=== PATIENT | female | born 1970 | race Caucasian/White ===

== ENCOUNTER 2016-10-10 13:57 | Observation (INO) ==
--- NOTE | 2016-10-10 15:48 | Hospitalist History & Physical ---
Assessment and Plan (1) Acute exacerbation of CHF (congestive heart failure) Status: Acute Assessment and plan: lasix 80 mg IV every 12 hours, echo, CMP, mg, cbc tsh Current Visit: Yes (2) Hypertension Status: Acute Assessment and plan: coreg Current Visit: Yes (3) Morbid obesity Status: Acute Current Visit: Yes (4) DVT (deep venous thrombosis) Status: Acute Assessment and plan: xarelto Current Visit: Yes (5) Pulmonary emboli Status: Acute Assessment and plan: xarelto Current Visit: Yes (6) Lymphedema Status: Acute Assessment and plan: Dr Lindo for assistance Current Visit: Yes History of Present Illness Chief complaint: SOB History of present illness: Ms. 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 Patient has chronic lymphedema but has excessive fluid which is causing her extreme discomfort. Patient does have a history of congestive heart failure per her report. She had been told that she was not a diabetic. I will asked Dr. Lindo to see her due to her poor lymphatics and venous supply. Patient reports the clots do not run in their families nor is she currently on any kind of estrogen. Home Medications Medication Instructions Recorded Confirmed Type Montelukast Tab [Singulair Tab] 10 mg PO BEDTIME 02/02/16 09/17/16 History Clorazepate [Tranxene] 7.5 mg PO BEDTIME 07/01/16 09/17/16 History Fluticasone/Vilanterol [Breo 1 puff INH QPM 07/01/16 09/17/16 History Ellipta 200-25 Mcg INH] Ipratropium Inhaler [Atrovent 1 puff INH DAILY PRN 07/01/16 09/17/16 History Inhaler] Ipratropium Neb [Atrovent Neb] 250 mcg RESP TX QPM 07/01/16 09/17/16 History Benzonatate [Tessalon] 100 mg PO QPM 09/17/16 09/17/16 History Rivaroxaban [Xarelto] 20 mg PO QPM 09/17/16 09/17/16 History Tramadol HCl [Tramadol ER Tab] 50 mg PO QPM 09/17/16 09/17/16 History Furosemide [Furosemide] 40 mg PO DAILY 10/10/16 10/10/16 History Ibuprofen Tab [Motrin Tab] 400 mg PO BEDTIME 10/10/16 10/10/16 History Levofloxacin Tab [Levaquin Tab] 750 mg PO BEDTIME 10/10/16 10/10/16 History Allergies Allergy/AdvReac Type Severity Reaction Status Date / Time morphine Allergy Unknown/Unable Verified 07/01/16 11:33 to obtain albuterol AdvReac Palpitation Verified 09/17/16 17:56 s Morpholine Analogues AdvReac Hallucinati Verified 07/01/16 11:33 ng Medical,Surgical,& Family Hx - Medical History Cardio: History of: CHF, CAD, Hypertension, Cardiovascular Problems (IVC filter) Endocrine: No history of: Diabetes Mellitus (IDDM) Respiratory: History of: Pulmonary Embolism Genitourinary: History of: Recurring Urinary Tract Infections Musculoskeletal: History of: Musculoskeletal Problems (MS DVT) Hematology: History of: Clotting Problems (multiple blood clots has a filter) - Surgical History Cardiac Surgeries: Sugical HX of: Cardiac Catheterization Reproductive Surgeries: Surgical HX of;: Section, Hysterectomy, Tubal Ligation - Family History Family History: Reports;: Family Diabetes - Social History Smoking Status: Never smoker Frequency of Alcohol Use: None Type of Drug Use: None Marital Status: Single Lives With:: Alone Functional capacity: independent ambulation - Constitutional Constitutional: Present: fatigue, weight gain. Absent: fever(s), headache(s) - EENT Eyes: Absent: blurry vision, diplopia Ears: Absent: decreased hearing, ear discharge Nose, mouth and throat: Absent: headache(s), sore throat - Cardiovascular Cardiovascular: Present: dyspnea, dyspnea on exertion, edema, orthopnea, PND. Absent: chest pain at rest - Respiratory Respiratory: Present: dyspnea, dyspnea on exertion. Absent: snoring - Gastrointestinal Gastrointestinal: Absent: constipation, diarrhea, nausea, vomiting - Genitourinary Genitourinary: Present: dysuria. Absent: difficulty urinating - Musculoskeletal Musculoskeletal: Absent: arthralgias, back pain - Neurological Neurological: Absent: confusion, headache(s), syncope - Psychiatric Psychiatric: Absent: anxiety, depression - Endocrine Endocrine: Absent: cold intolerance, heat intolerance - Hematologic/Lymphatic Hematologic/Lymphatic: Absent: easy bleeding, easy bruising Exam - Constitutional Vitals: Period Temp Pulse Resp BP Sys/Mckay Pulse Ox Last 24 Hr 96.9 F 78 18 164/91 92 General appearance: no acute distress, over weight - Head Head exam: Present: normal inspection, normocephalic - Eye Eye exam: Present: EOMI. Absent: scleral icterus Pupils: Present: KEVEN, normal accommodation - ENT ENT exam: Present: normal exam, normal external ear exam - Neck Neck exam: Present: lymphadenopathy. Absent: thyromegaly - Respiratory Respiratory exam: Present: decreased breath sounds. Absent: rhonchi, wheezes - Cardiovascular Cardiovascular exam: Present: regular rate and rhythm. Absent: systolic murmur - GI/Abdominal GI/Abdominal exam: Present: normal bowel sounds, soft. Absent: tenderness - Extremities Exam Extremities exam: Present: normal capillary refill, calf tenderness, edema - Neurological Exam Neurological exam: Present: alert, oriented X3, CN II-XII intact, reflexes normal. Absent: motor sensory deficit - Psychiatric Psychiatric exam: Present: normal affect, normal mood - Skin Skin exam: Present: normal color, warm Results - Labs Lab Results: I have reviewed the past 24 hour labs
[2016-10-10] MEDS ORDERED: MAGNESIUM SULF RIDER 2 GM in PREMIX 1 EACH IV PRN (16:04)
[2016-10-10] MEDS ORDERED: ZALEPLON 5 MG CAPSULE PO PRN (16:04)
[2016-10-10] MEDS ORDERED: ONDANSETRON 4 MG/2 ML VIAL IV PRN (16:04)
[2016-10-10] MEDS ORDERED: ACETAMINOPHEN 325 MG TABLET PO PRN (16:04)
[2016-10-10] MEDS ORDERED: MAGNESIUM SULF RIDER 4 GM in PREMIX 1 EACH IV PRN (16:04)
[2016-10-10 16:32] LABS: Apearance,Urine Slightly Hazy (Clear); Bacteria,Urine Occasional /HPF (Few); Bilirubin,Urine Negative (Negative); Blood, Urine Negative (Negative); Glucose,Urine (UA) Negative (Negative); Ketones,Urine Negative (Negative); Mucus,Urine Occasional /LPF (Occasional); Nitrite,Urine Negative (Negative); Protein,Urine Negative; RBC,Urine 1 /HPF (0-4); Squamous Epithelial Cell,Urine Occasional /HPF (0-10); Urine Color Yellow (Yellow); Urine Specific Gravity 1.025 (1.001-1.035); Urine Urobilinogen < 2.0 EU/DL (0.2-1.0); WBC,Urine 6 /HPF (0-6)
--- NOTE | 2016-10-10 16:34 | EKG Report ---
Stationary ECG Study [facility] Test Date: 10/10/2016 4:34:05 PM Pat Name: MONET PETER Department: Room: 288 Gender: F Visual Merchandising Specialist: DEBBIE : 1970 Requested by: Shereen Alcazar Order Number: [id number] Reading MD: UMU GAVIN Intervals [place] Rate: 70 P: 60 AK: 172 QRS: 108 QRSD: 121 T: 7 QT: 421 QTc: 441 Interpretive Statements SINUS RHYTHM MARKED RIGHT AXIS DEVIATION PROBABLE INFERIOR MYOCARDIAL INFARCTION, PROBABLY OLD Electronically Signed On 10-14-16 18:27:10 CDT by UMU GAVIN [email or web address]
--- NOTE | 2016-10-10 16:41 | XRay Report ---
History: Shortness of breath Date: 10/10/2016 Study: Chest x-ray AP portable Comparison exam: September 17, 2016 There is stable cardiomegaly. The mediastinal contours are unchanged. The pulmonary vasculature is upper normal. There is atelectatic parenchymal disease in either lung base, similar to the previous study. There is no worsening infiltrate or increasing pleural effusion. Osseous structures are unchanged. Impression: Continued atelectatic change in the lung bases without gross change from the previous study. Stable cardiomegaly PROCEDURE INTERPRETED AT [facility] DEPARTMENT OF RADIOLOGY Final Report Signed by: Dr. Julianne Benson
--- NOTE | 2016-10-10 17:41 | Ultrasound Report ---
US venous doppler LE BI Indication: Lower extremity swelling and pain. Comparison: None. Technique: Using a transcutaneous probe, grayscale, spectral Doppler, and color Doppler images of the bilateral lower extremity venous structures were captured and stored. Grayscale images prior to and following compression were obtained. Interrogated venous structures include the bilateral common femoral vein, superficial femoral vein (proximal, mid, and distal), and popliteal vein. Findings: There is no evidence of thrombus within the interrogated venous structures. the interrogated venous segments demonstrate presence of both color flow and spectral flow. Impression: 1. No evidence of venous thrombosis. 10/10/2016 5:38 PM PROCEDURE INTERPRETED AT [facility] DEPARTMENT OF RADIOLOGY Final Report Signed by: Dr. Jameson Murillo
[2016-10-10 17:43] LABS: Basophils % 0.5 % (0.0-0.8); Eosinophils # 0.1 10*3/uL (0.0-0.87); Hematocrit 43.3 VOL% (35.7-47.0); Hemoglobin 13.5 GM/DL (12.0-16.0); Immature Granulocytes % 0.2 %; Immature Granulocytes Absolute 0.01 #; Lymphocytes % 33.1 % (21.3-54.2); Mean Corpuscular HGB Conc 31.2 GM/DL (32-36); Mean Corpuscular Hemoglobin 29 PG (27-34); Mean Corpuscular Volume 92.5 FL (87-102); Mean Platelet Volume 9.4 FL (9.6-12.0); Monocytes # 0.3 10*3/uL (0.11-0.8); Monocytes % 5.7 % (1.7-12.7); Neutrophils # 3.5 10*3/uL (1.4-7.4); Neutrophils % 58.5 % (38.7-73.9); Platelet Count 207 T/CUMM (130-400); Red Blood Count 4.68 MC/CUMM (3.8-5.5)
[2016-10-10] MEDS: SPIRONOLACTONE 25 MG TABLET PO SCH (17:44)
[2016-10-10] MEDS: PANTOPRAZOLE 40 MG TABLET PO SCH (17:44)
[2016-10-10] MEDS: ASPIRIN CHEW 81 MG TABLET PO SCH (17:44)
[2016-10-10 18:16] LABS: Albumin 3.3 G/DL (3.4-5.0); Bilirubin,Total 0.7 MG/DL (0.2-1.0); Calcium 9.1 MG/DL (8.5-10.1); Magnesium 2.1 MG/DL (1.8-2.4); Potassium 3.6 MMOL/L (3.5-5.1); Thyroid Stimulating Hormone 1.86 uIU/ml (0.358-3.74); Total Protein 6.4 G/DL (6.4-8.3)
[2016-10-10] MEDS ORDERED: TRAMADOL HCL 50 MG PO SCH (19:00)
[2016-10-10] MEDS ORDERED: BREO ELLIPTA INH SCH (21:00)
[2016-10-10] MEDS: MONTELUKAST 10 MG TABLET PO SCH (22:13)
[2016-10-10] MEDS: CARVEDILOL 3.125 MG TABLET PO SCH (22:13)
[2016-10-10] MEDS: CLORAZEPATE 3.75 MG TABLET PO SCH (22:13)
[2016-10-10] MEDS: RIVAROXABAN 20 MG TABLET PO SCH (22:13)
[2016-10-10] MEDS: FUROSEMIDE 40 MG/4 ML VIAL IV SCH (22:14)
[2016-10-11 05:24] LABS: Basophils % 0.3 % (0.0-0.8); Eosinophils # 0.1 10*3/uL (0.0-0.87); Hematocrit 43.5 VOL% (35.7-47.0); Hemoglobin 13.8 GM/DL (12.0-16.0); Immature Granulocytes % 0.3 %; Immature Granulocytes Absolute 0.02 #; Lymphocytes # 2.2 10*3/uL (1.4-4.0); Lymphocytes % 33.4 % (21.3-54.2); Mean Corpuscular HGB Conc 31.7 GM/DL (32-36); Mean Corpuscular Hemoglobin 29 PG (27-34); Mean Platelet Volume 9.8 FL (9.6-12.0); Monocytes # 0.4 10*3/uL (0.11-0.8); Monocytes % 6.6 % (1.7-12.7); Neutrophils # 3.7 10*3/uL (1.4-7.4); Neutrophils % 57.4 % (38.7-73.9); Platelet Count 227 T/CUMM (130-400); Red Blood Count 4.73 MC/CUMM (3.8-5.5); White Blood Count 6.5 T/CUMM (4-12)
[2016-10-11 05:46] LABS: Albumin 3.4 G/DL (3.4-5.0); Calcium 9.1 MG/DL (8.5-10.1); Osmolality,Calculated 280.3 MOS/KG (273-304); Potassium 4.3 MMOL/L (3.5-5.1); Risk Ratio 2.13; Total Protein 6.5 G/DL (6.4-8.3); VLDL CHOLESTEROL 19.2 MG/DL
[2016-10-11] MEDS: SPIRONOLACTONE 25 MG TABLET PO SCH (09:20)
[2016-10-11] MEDS: ASPIRIN CHEW 81 MG TABLET PO SCH (09:20)
[2016-10-11] MEDS: FUROSEMIDE 40 MG/4 ML VIAL IV SCH ×2 (09:20→16:30)
[2016-10-11] MEDS: CARVEDILOL 3.125 MG TABLET PO SCH ×2 (09:22→21:34)
[2016-10-11] MEDS: PANTOPRAZOLE 40 MG TABLET PO SCH (09:22)
[2016-10-11] MEDS: cefTRIAXone 1,000 MG in SODIUM CHLORIDE 0.9% 100 ML IV SCH (12:48)
--- NOTE | 2016-10-11 13:43 | Hospitalist Progress Note ---
Assessment and Plan (1) Acute exacerbation of CHF (congestive heart failure) Status: Acute Assessment and plan: decrease lasix to 20 mg IV every 12 hours, echo pending, normal bnp, doubt chf, cont coreg Current Visit: Yes (2) Hypertension Status: Acute Assessment and plan: cont coreg Current Visit: Yes (3) Morbid obesity Status: Acute Current Visit: Yes (4) DVT (deep venous thrombosis) Status: Acute Assessment and plan: cont xarelto, venous dopplers no dvt Current Visit: Yes (5) Pulmonary emboli Status: Acute Assessment and plan: Hx of PE, chronically on xarelto Current Visit: Yes (6) Lymphedema Status: Acute Assessment and plan: Dr Lindo for assistance, may need siva boots, concerned about pul htn, awake echo Current Visit: Yes (7) Metabolic alkalosis Status: Acute Assessment and plan: decrease diuretics and obtain abg to correlate. Current Visit: Yes Hospitalist: Subjective Interval history: Patient's lower extremity edema was better today. Patient may have right-sided heart failure in addition to having chronic lymphedema. Her BNP was normal. I do not want to over diurese her as I am concerned about causing renal failure. Her renal function looks normal to me even though she does not produce a lot of urine. I have Dr. Sanchez review her case. I would like Dr. Abarca's inputs on her lymphedema. Patient has history of having multiple DVTs in both legs and PEs in the past. Venous Dopplers however are currently showing no evidence of DVT. Patient says she feels a little bit better today but is still sleeping in the chair. Patient never finished a complete sleep study. I am concerned about possible pulmonary hypertension. Patient's postvoid residual was only 50 mL's. Her initial UA was positive for infection asked him to repeat it with a straight cath. Exam - Constitutional Vitals: Period Temp Pulse Resp BP Sys/Mckay Pulse Ox Last 24 Hr 96.9 F-98.5 F 63-86 18-20 121-164/70-94 90-98 Exam: Heart Rate-[RRR] Lungs-[CTAB but diminished ] GI-[+bs soft, NT, obese ] Ext-[severe edema with lymphedema improved with diuresis ] Neuro [Motor 5/5], [alert and oriented times 3] psych [normal mood and affect] General [no acute distress] Results - Labs CBC & BMP: 10/11/16 04:38 10/11/16 04:38 Lab Results: I have reviewed the past 24 hour labs Labs: gram positive cocci in urine - Diagnostic Findings Procedure: Chest x-ray: report reviewed by me (CM and atelectasis ), Ultrasound : report reviewed by me (echo pending, venous dopplers negative for dvt )
[2016-10-11] MEDS ORDERED: FUROSEMIDE 40 MG/4 ML VIAL IV SCH (13:47)
--- NOTE | 2016-10-11 14:24 | ECHO Report ---
Fernie Penaloza Exam Date: 10/11/2016 09:19 Referring Physician: Technologist: albania Kimble ARDMS, RVT Age: 46 Ht (in): 63 Wt (lb): 227 Gender: F Exam Location: [facility] Echo Indications: Essential (primary) hypertension, Bilateral lower extremity DVT, Pulmonary emboli, Lymphedema, Acute exacerbation of CHF BP: 124 / 77 HR: 84 Rhythm: Sinus Technical Quality: Good IMPRESSIONS Normal left ventricular cavity size. Normal left ventricular wall thickness. Left ventricular ejection fraction is estimated at 60 %. The right ventricle is normal in size and function. The right atrium is normal in size. The left atrium is normal in size. Morphologically normal mitral valve without significant stenosis or prolapse. There is no mitral regurgitation. Morphologically normal aortic valve without significant sclerosis or stenosis. There is no aortic regurgitation. Morphologically normal tricuspid valve. Trace tricuspid valve regurgitation. Morphologically normal pulmonic valve without significant stenosis. There is no pulmonic regurgitation. Normal pericardium without effusion. Normal ascending aorta dimension. MEASUREMENTS (Male / Female) Normal Values 2D ECHO LV Diastolic Diameter PLAX 3.2 cm 4.2 - 5.9 / 3.9 - 5.3 cm LV Systolic Diameter PLAX 2.0 cm LV Fractional Shortening PLAX 38.2 % IVS Diastolic Thickness 1.0 cm 0.6 - 1.0 / 0.6 - 0.9 cm LVPW Diastolic Thickness 0.9 cm 0.6 - 1.0 / 0.6 - 0.9 cm RV Internal Dim ED PLAX 2.5 cm Aortic Root Diameter 3.3 cm LA Systolic Diameter LX 3.3 cm 3.0 - 4.0 / 2.7 - 3.8 cm DOPPLER TR Peak Velocity 261.0 cm/s TR Peak Gradient 27.2 mmHg FINDINGS Left Ventricle Normal left ventricular cavity size. Normal left ventricular wall thickness. Left ventricular ejection fraction is estimated at 60 %. Right Ventricle The right ventricle is normal in size and function. Right Atrium The right atrium is normal in size. Left Atrium The left atrium is normal in size. Mitral Valve Morphologically normal mitral valve without significant stenosis or prolapse. There is no mitral regurgitation. Aortic Valve Morphologically normal aortic valve without significant sclerosis or stenosis. There is no aortic regurgitation. Tricuspid Valve Morphologically normal tricuspid valve. Trace tricuspid valve regurgitation. Pulmonic Valve Morphologically normal pulmonic valve without significant stenosis. There is no pulmonic regurgitation. Pericardium Normal pericardium without effusion. Aorta Normal ascending aorta dimension. Semaj Rodriguez MD (Electronically Signed) Final Date: 11 October 2016 14:23
--- NOTE | 2016-10-11 14:45 | Nephrology Consult Note ---
History of Present Illness Chief complaint: Leg edema History of present illness: Ms. Penaloza is a 46 year old female with normal kidney function but severe peripheral edema. She has a history of bilateral deep venous thrombophlebitis and pulmonary emboli in 2014 she had a inferior vena cava filter placed in 2014. Her edema has recently become much worse. There is also a history of a muscular dystrophy which she says makes her quite weak. She has difficulty walking due to the weakness and knee discomfort. She also describes dyspnea on exertion and describes dyspnea at rest with orthopnea. Her echocardiogram showed normal ejection fraction and normal right ventricle with out evidence of pulmonary hypertension. On exam she is a pleasant lady who is in no distress while sitting in a chair. She has considerable leg edema, no sacral edema, clear chest but decreased breath sounds over the bases. Chest x-ray reveals elevated diaphragms but no pulmonary edema. She has tried compression stockings but cannot tolerate them due to difficulty getting them on and also pain when they are in place. Impression peripheral edema due to multifactoral causes including venous incompetence due to damage from DVT #2 inferior vena cava filter #3 history of muscular dystrophy Plan: I would continue reasonable diuretic efforts as long as renal function remains stable and blood pressure remains adequate. Correcting the mechanical problems as much as we can with compression wraps or intermittent compression boots would be helpful. Home Medications Medication Instructions Recorded Confirmed Type Montelukast Tab [Singulair Tab] 10 mg PO BEDTIME 02/02/16 10/10/16 History Clorazepate [Tranxene] 7.5 mg PO BEDTIME 07/01/16 10/10/16 History Fluticasone/Vilanterol [Breo 1 puff INH QPM 07/01/16 10/10/16 History Ellipta 200-25 Mcg INH] Ipratropium Inhaler [Atrovent 1 puff INH DAILY PRN 07/01/16 10/10/16 History Inhaler] Ipratropium Neb [Atrovent Neb] 250 mcg RESP TX QPM 07/01/16 10/10/16 History Benzonatate [Tessalon] 100 mg PO QPM 09/17/16 10/10/16 History Rivaroxaban [Xarelto] 20 mg PO QPM 09/17/16 10/10/16 History Tramadol HCl [Tramadol ER Tab] 25 mg PO QPM 09/17/16 10/10/16 History Furosemide [Furosemide] 40 mg PO DAILY 10/10/16 10/10/16 History Ibuprofen Tab [Motrin Tab] 400 mg PO BEDTIME 10/10/16 10/10/16 History Levofloxacin Tab [Levaquin Tab] 750 mg PO BEDTIME 10/10/16 10/10/16 History Allergies Allergy/AdvReac Type Severity Reaction Status Date / Time morphine Allergy Unknown/Unable Verified 07/01/16 11:33 to obtain albuterol AdvReac Palpitation Verified 09/17/16 17:56 s Morpholine Analogues AdvReac Hallucinati Verified 07/01/16 11:33 ng Medical,Surgical,& Family Hx - Medical History Cardio: History of: CHF, CAD, Hypertension, Cardiovascular Problems (IVC filter) Endocrine: No history of: Diabetes Mellitus (IDDM) Respiratory: History of: Pulmonary Embolism Genitourinary: History of: Recurring Urinary Tract Infections Musculoskeletal: History of: Musculoskeletal Problems (MS DVT) Hematology: History of: Clotting Problems (multiple blood clots has a filter) - Surgical History Cardiac Surgeries: Sugical HX of: Cardiac Catheterization Reproductive Surgeries: Surgical HX of;: Section, Hysterectomy, Tubal Ligation - Family History Family History: Reports;: Family Diabetes - Social History Smoking Status: Never smoker Frequency of Alcohol Use: None Type of Drug Use: None Review of Systems 12 point system: reviewed and no additional remarkable complaints except as stated Exam - Vital Signs Vital signs: Period Temp Pulse Resp BP Sys/Mckay Pulse Ox Last 24 Hr 96.9 F-98.5 F 63-86 18-20 121-164/70-94 90-98 - General Appearance General appearance: well-developed, well-nourished, appears started age Neck: no JVD, no thyromegaly, no carotid bruit, supple Respiratory: no kyphosis, no scoliosis Cardiology: no murmurs, no rub, no gallops, no edema, regular rate, regular rhythm, normal S1, normal S2 Gastrointestinal: normoactive bowel sounds Integumentary: no rash, warm and dry Neurologic: no focal deficit, no asterixis, alert and oriented x3, reflexes 2+ and symmetric, gait normal, strength 5/5 Musculoskeletal: no deformities, no erythema, no cyanosis, no clubbing Psychiatric: mood/affect appropriate (Generous leg edema, clear chest), cooperative Results - Labs CBC & BMP: 10/11/16 04:38 10/11/16 04:38 Assessment and Plan - Time spent with patient Time spent with patient: Greater than 30 minutes (1) Edema, peripheral Status: Acute Assessment and plan: Due to previous DVT. Also the patient has an IVC filter Current Visit: Yes
--- NOTE | 2016-10-11 15:01 | Vascular Surgery Consult Note ---
History of Present Illness Chief complaint: bilateral lower leg lymphedema History of present illness: Ms. Penaloza is a 46 year old female Fernie Penaloza a 46-year-old woman is admitted with the apparently a modest UTI and a history of possible congestive heart failure lower extremity swelling. Significantly she does have a history of bilateral deep vein thrombosis and pulmonary emboli occurring in 2014 and 16. She had a vena caval filter placed we think in 2014 and has been on chronic anticoagulation. She is complaining of increasing aches swelling in the lower legs since the vena caval filter was placed. She has undergone venous Dopplers of both lower extremities that does not indicate any acute thrombi or chronic phlebitic syndrome of either lower leg but did not interrogate the vena cava itself. On examination she clearly has bilateral lymphedema but does not have sequela of chronic venous insufficiency or venous stasis dermatitis. No ulceration. Her feet are warm and well-perfused I cannot really palpate pedal pulses but there is no indication of ischemia and there is significant bilateral lymphedema. At this point I think Ms. Spencer Penaloza has chronic lymphedema that may have preceded somewhat the placement of vena caval filter but most likely is related to her history of deep vein thrombosis and vena caval filter. I would suggest we attempt to do ultrasound of the vena cava to determine patency of the head and thus not possible a CT could tell us whether or not the vena cava is in fact patent. The next question would be whether this is a vena caval filter that can be removed and that is not in my information currently available. She does state the filter was placed here to [facility] however. In the meantime I think the routine treatments of lymphedema are appropriate which is elevation exercise and elastic support. I have actually had very good success with lymphedema pump systems but these are generally difficult to obtain and are not routinely covered by insurance. The alternative would be routine Jerad wraps for some port throughout the day. Exercise and elevation are also helpful. There really is no surgery that I would recommend at this stage for the level of lymphedema that she has. If her venous insufficiency is progressive and worsening referral to Dr. Oviedo at the [facility] in [place] would be a reasonable approach Home Medications Medication Instructions Recorded Confirmed Type Montelukast Tab [Singulair Tab] 10 mg PO BEDTIME 02/02/16 10/10/16 History Clorazepate [Tranxene] 7.5 mg PO BEDTIME 07/01/16 10/10/16 History Fluticasone/Vilanterol [Breo 1 puff INH QPM 07/01/16 10/10/16 History Ellipta 200-25 Mcg INH] Ipratropium Inhaler [Atrovent 1 puff INH DAILY PRN 07/01/16 10/10/16 History Inhaler] Ipratropium Neb [Atrovent Neb] 250 mcg RESP TX QPM 07/01/16 10/10/16 History Benzonatate [Tessalon] 100 mg PO QPM 09/17/16 10/10/16 History Rivaroxaban [Xarelto] 20 mg PO QPM 09/17/16 10/10/16 History Tramadol HCl [Tramadol ER Tab] 25 mg PO QPM 09/17/16 10/10/16 History Furosemide [Furosemide] 40 mg PO DAILY 10/10/16 10/10/16 History Ibuprofen Tab [Motrin Tab] 400 mg PO BEDTIME 10/10/16 10/10/16 History Levofloxacin Tab [Levaquin Tab] 750 mg PO BEDTIME 10/10/16 10/10/16 History Allergies Allergy/AdvReac Type Severity Reaction Status Date / Time morphine Allergy Unknown/Unable Verified 07/01/16 11:33 to obtain albuterol AdvReac Palpitation Verified 09/17/16 17:56 s Morpholine Analogues AdvReac Hallucinati Verified 07/01/16 11:33 ng Medical,Surgical,& Family Hx - Medical History Cardio: History of: CHF, CAD, Hypertension, Cardiovascular Problems (IVC filter) Endocrine: No history of: Diabetes Mellitus (IDDM) Respiratory: History of: Pulmonary Embolism Genitourinary: History of: Recurring Urinary Tract Infections Musculoskeletal: History of: Musculoskeletal Problems (MS DVT) Hematology: History of: Clotting Problems (multiple blood clots has a filter) - Surgical History Cardiac Surgeries: Sugical HX of: Cardiac Catheterization Reproductive Surgeries: Surgical HX of;: Section, Hysterectomy, Tubal Ligation - Family History Family History: Reports;: Family Diabetes - Social History Smoking Status: Never smoker Frequency of Alcohol Use: None Type of Drug Use: None Exam - Constitutional Vitals: Period Temp Pulse Resp BP Sys/Mckay Pulse Ox Last 24 Hr 97.2 F-98.5 F 63-86 18-20 121-135/70-94 90-98 Results - Labs CBC & BMP: 10/11/16 04:38 10/11/16 04:38
[2016-10-11 16:00] LABS: ABG HCO3 32.5 MMOL/L (20-26); ABG Oxygen Saturation 88.6 % (95-100); ABG PCO2 57.9 MM HG (35-48); ABG PH 7.406 (7.35-7.45); ABG PO2 56.2 MM HG (80-95); ABG TCO2 31.2 MMOL/L (23-27)
--- NOTE | 2016-10-11 16:33 | Sleep Medicine Consult ---
Assessment and Plan (1) Obstructive sleep apnea (adult) (pediatric) Status: Acute Assessment and plan: I obtained Mrs. Penaloza's diagnostic studies dated August 16, 2010 which was done at the [facility] sleep center. At that time, she tested positive for mild obstructive sleep apnea with a diagnostic AHI of 7.7, more significant REM component with an AHI of 27.7 and oxygen desaturations as low as 78%. She was to undergo CPAP titration study due to her underlying history of congestive heart failure as well as myotonic dystrophy but did not follow through with further testing and treatment. I will have her set up for CPAP titration at [facility] following her hospital discharge. Current Visit: Yes History of Present Illness Chief complaint: possible sleep apnea History of present illness: Ms. Penaloza is a 46 year old female who was admitted yesterday with acute onset congestive heart failure. She was experiencing shortness of breath that have been present for over a week along with worsening peripheral edema. She reports a long history of lymphedema as well as numerous deep vein thrombosis and pulmonary embolisms and now has an IVC filter intact. Sleep medicine was consulted due to to rule out any underlying sleep disorder. She states that she was studied at the [place] sleep lab several years ago but reports being "negative" for a sleep disorder. However, she was prescribed a device to sleep with each night but notes this device was not a CPAP or BiPAP and is not currently being used. She is unemployed and does not have a routine sleep schedule. She states she only needs several hours of sleep per day to feel refreshed. On average, she gets between 2-5 hours of sleep per night and awakens refreshed. She denies any fatigue or sleepiness during the day and does not take daytime naps. She has no history of snoring or abnormal breathing during her sleep but does sleep alone in her bedroom. Her children have noticed that she "grunts in her sleep" when she is excessively tired. She has been unable to sleep supine for many years and currently sleeps with 3 pillows. She does have more shortness of breath lying flat. She does not have frequent sleep disruption but will awaken occasionally but returns to sleep quickly. She denies any gasping or choking sensations in her sleep. In addition to her congestive heart failure and history of pulmonary embolism, she is also treated for myotonic muscular dystrophy and hypertension. Her primary provider is Dr. Soto and her manufacturers representative is Dr. Rodriguez. She is but states her drives a truck and is never home. She is currently living with her daughter. She has a very sedentary lifestyle due to her underlying medical conditions and is only able to walk short distances due to her dyspnea. Home Medications Medication Instructions Recorded Confirmed Type Montelukast Tab [Singulair Tab] 10 mg PO BEDTIME 02/02/16 10/10/16 History Clorazepate [Tranxene] 7.5 mg PO BEDTIME 07/01/16 10/10/16 History Fluticasone/Vilanterol [Breo 1 puff INH QPM 07/01/16 10/10/16 History Ellipta 200-25 Mcg INH] Ipratropium Inhaler [Atrovent 1 puff INH DAILY PRN 07/01/16 10/10/16 History Inhaler] Ipratropium Neb [Atrovent Neb] 250 mcg RESP TX QPM 07/01/16 10/10/16 History Benzonatate [Tessalon] 100 mg PO QPM 09/17/16 10/10/16 History Rivaroxaban [Xarelto] 20 mg PO QPM 09/17/16 10/10/16 History Tramadol HCl [Tramadol ER Tab] 25 mg PO QPM 09/17/16 10/10/16 History Furosemide [Furosemide] 40 mg PO DAILY 10/10/16 10/10/16 History Ibuprofen Tab [Motrin Tab] 400 mg PO BEDTIME 10/10/16 10/10/16 History Levofloxacin Tab [Levaquin Tab] 750 mg PO BEDTIME 10/10/16 10/10/16 History Allergies Allergy/AdvReac Type Severity Reaction Status Date / Time morphine Allergy Unknown/Unable Verified 07/01/16 11:33 to obtain albuterol AdvReac Palpitation Verified 09/17/16 17:56 s Morpholine Analogues AdvReac Hallucinati Verified 07/01/16 11:33 ng - Constitutional Constitutional: Absent: daytime sleepiness, fatigue, headache(s), night sweats, stops breathing during sleep - EENT Nose, mouth and throat: Absent: nasal congestion, vertigo - Cardiovascular Cardiovascular: Present: dyspnea, dyspnea on exertion, orthopnea. Absent: chest pain at rest, chest pain with activity, palpitations - Respiratory Respiratory: Present: dyspnea on exertion. Absent: cough, wheezing, snoring - Gastrointestinal Gastrointestinal: Absent: constipation, diarrhea, nausea - Genitourinary Genitourinary: Absent: difficulty urinating, hematuria, urinary frequency - Musculoskeletal Musculoskeletal: Present: muscle cramps, muscle weakness - Neurological Neurological: Absent: dizziness, frequent falls, syncope - Psychiatric Psychiatric: Present: depression. Absent: anxiety - Endocrine Endocrine: Present: heat intolerance - Hematologic/Lymphatic Hematologic/Lymphatic: Present: lymphadenopathy Exam (Pulmonay) H&P - Constitutional Vitals: Period Temp Pulse Resp BP Sys/Mckay Pulse Ox Last 24 Hr 97.2 F-98.5 F 63-86 18-20 121-135/70-88 90-98 General appearance: morbidly obese - Head Head exam: Present: normocephalic, atraumatic - Eye Pupils: Present: KEVEN - ENT ENT exam: Present: other (Mallampati class III, small mouth) - Expanded ENT Exam ENT Exam Mouth exam: Present: moist Teeth exam: Present: other (missing teeth) Throat exam: Absent: post pharyngeal erythema - Neck Neck exam: Absent: lymphadenopathy, tenderness, thyromegaly - Respiratory Respiratory exam: Present: clear to auscultation bilaterally. Absent: rales, rhonchi - Cardiovascular Cardiovascular exam: Present: regular rate and rhythm. Absent: gallop, rubs, systolic murmur - GI/Abdominal GI/Abdominal exam: Present: soft. Absent: normal bowel sounds, tenderness - Extremities Exam Extremities exam: Present: normal capillary refill, edema (2+ edema to lower extremities). Absent: calf tenderness - Neurological Exam Neurological exam: Present: alert, oriented X3 - Psychiatric Psychiatric exam: Present: normal affect, normal mood - Skin Skin exam: Present: warm, dry Medical,Surgical,& Family Hx - Medical History Cardio: History of: CHF, CAD, Hypertension, Cardiovascular Problems (IVC filter) Endocrine: No history of: Diabetes Mellitus (IDDM) Respiratory: History of: Pulmonary Embolism Genitourinary: History of: Recurring Urinary Tract Infections Musculoskeletal: History of: Musculoskeletal Problems (MS DVT) Hematology: History of: Clotting Problems (multiple blood clots has a filter) - Surgical History Cardiac Surgeries: Sugical HX of: Cardiac Catheterization Reproductive Surgeries: Surgical HX of;: Section, Hysterectomy, Tubal Ligation - Family History Family History: Reports;: Family Diabetes - Social History Smoking Status: Never smoker Frequency of Alcohol Use: None Type of Drug Use: None Results - Labs CBC & BMP: 10/11/16 04:38 10/11/16 04:38
[2016-10-11] MEDS: ZINC OXIDE 16% PASTE 57 GM TUBE TOP SCH ×2 (16:44→21:36)
[2016-10-11] MEDS: RIVAROXABAN 20 MG TABLET PO SCH (18:28)
[2016-10-11] MEDS: CLORAZEPATE 3.75 MG TABLET PO SCH (21:34)
[2016-10-11] MEDS: MONTELUKAST 10 MG TABLET PO SCH (21:34)
[2016-10-12 05:19] LABS: Basophils % 0.4 % (0.0-0.8); Eosinophils # 0.2 10*3/uL (0.0-0.87); Eosinophils % 2.3 % (0.00-10.9); Hematocrit 40.8 VOL% (35.7-47.0); Hemoglobin 12.9 GM/DL (12.0-16.0); Immature Granulocytes % 0.3 %; Immature Granulocytes Absolute 0.02 #; Lymphocytes # 2.7 10*3/uL (1.4-4.0); Lymphocytes % 38.9 % (21.3-54.2); Mean Corpuscular HGB Conc 31.6 GM/DL (32-36); Mean Corpuscular Hemoglobin 29 PG (27-34); Mean Corpuscular Volume 91.3 FL (87-102); Monocytes # 0.5 10*3/uL (0.11-0.8); Monocytes % 7.7 % (1.7-12.7); Neutrophils # 3.5 10*3/uL (1.4-7.4); Neutrophils % 50.4 % (38.7-73.9); Platelet Count 229 T/CUMM (130-400); Red Blood Count 4.47 MC/CUMM (3.8-5.5); White Blood Count 6.9 T/CUMM (4-12)
[2016-10-12 05:52] LABS: Osmolality,Calculated 282.3 MOS/KG (273-304); Potassium 3.5 MMOL/L (3.5-5.1); Total Protein 5.8 G/DL (6.4-8.3)
[2016-10-12] MEDS: FUROSEMIDE 40 MG/4 ML VIAL IV SCH (09:08)
[2016-10-12] MEDS: ASPIRIN CHEW 81 MG TABLET PO SCH (09:08)
[2016-10-12] MEDS: CARVEDILOL 3.125 MG TABLET PO SCH (09:08)
[2016-10-12] MEDS: SPIRONOLACTONE 25 MG TABLET PO SCH (09:08)
[2016-10-12] MEDS: PANTOPRAZOLE 40 MG TABLET PO SCH (09:08)
[2016-10-12] MEDS: ZINC OXIDE 16% PASTE 57 GM TUBE TOP SCH (09:09)
--- NOTE | 2016-10-12 09:52 | Discharge Summary ---
<Steve Go - Last Filed: 10/12/16 09:37> Hospital Course - Hospital Course Hospital Course: Ms. Penaloza is a 46-year-old white female who presented as a direct admit from Dr. Louis's office on 10/10/2016 for further evaluation of bilateral lower extremity edema and shortness of breath. She does have a history of bilateral lower extremity DVTs and PEs for which she has an IVC filter placed and takes Xarelto. Patient does have chronic lymphedema but also excessive fluid which has caused her extreme discomfort. She was admitted to the hospital medicine service for further evaluation and treatment included diuresis with IV Lasix and beta blockade. Venous Doppler on admission found no evidence of venous thrombus in either lower extremity. Echocardiogram revealed normal left ventricular cavity size with ejection fraction estimated at 60%. There were no significant valvular abnormalities. Dr. Lindo was consulted for assistance with bilateral lower leg lymphedema. He suggested an ultrasound of the vena cava to determine the patency. In the meantime routine treatments of lymphedema including elevation exercises and elastic support are appropriate. Daughter states she was also seen by nephrology and sleep medicine. Nephrology recommended continued diuresis as appropriate according to renal function. Patient does have a history of obstructive sleep apnea which was found in August 2010. At this time sleep medicine has elected to have her set up for CPAP titration at [facility] [place] following her discharge. Patient has now reached maximum benefit from hospitalization and is stable for discharge. She is to follow-up with sleep medicine as well as her PCP in 1-2 weeks. Patient seen and examined. Hospital course reviewed and edited. - Time spent with patient Time with patient DS: Greater than 30 minutes Discharge Plan - Discharge Data Disposition: Disch To Home/Self Care - Discharge Medications New Carvedilol [Coreg] 3.125 mg PO BID #60 tablet Potassium Chloride Cap/Tab [K Dur] 10 meq PO DAILY #30 tablet Zinc Oxide 16% Paste [Ji's Butt Paste] 1 applic TOP BID applic Amoxicillin 500 mg PO TID #21 tablet Spironolactone [Aldactone] 12.5 mg PO DAILY #30 tablet Continue Montelukast Tab [Singulair Tab] 10 mg PO BEDTIME Ipratropium Neb [Atrovent Neb] 250 mcg RESP TX QPM Ipratropium Inhaler [Atrovent Inhaler] 1 puff INH DAILY PRN PRN Reason: Nausea/Vomiting Fluticasone/Vilanterol [Breo Ellipta 200-25 Mcg INH] 1 puff INH QPM Tramadol HCl [Tramadol ER Tab] 25 mg PO QPM Rivaroxaban [Xarelto] 20 mg PO QPM Clorazepate [Tranxene] 7.5 mg PO BEDTIME Benzonatate [Tessalon] 100 mg PO QPM Furosemide 40 mg PO DAILY Discontinued Ibuprofen Tab [Motrin Tab] 400 mg PO BEDTIME Levofloxacin Tab [Levaquin Tab] 750 mg PO BEDTIME - Follow Up or Referral Follow Up: Vinita Louis M.D. [Physician] - 2 Weeks Sindi Snider MD [Physician] - (needs cpap titration ) - Forms/Instructions Exam - Constitutional Vitals: Period Temp Pulse Resp BP Sys/Mckay Pulse Ox Last 24 Hr 97 F-98.6 F 75-86 18-20 110-138/57-88 90-98 Discharge Results Procedures and tests throughout hospitalization: Pending Orders 10/10/16 Urine Culture Routine 10/11/16 10:37 UA [Urinalysis] Stat 10/13/16 04:00 Comp Blood Count Auto Diff IN AM Comprehensive Metabolic Panel IN AM Labs on day of discharge: Labs from last 24 hours 10/12/16 10/12/16 10/11/16 04:12 04:12 14:23 WBC 6.9 RBC 4.47 Hgb 12.9 Hct 40.8 MCV 91.3 MCH 29 MCHC 31.6 L RDW 13.0 Plt Count 229 MPV 10.0 Neut % (Auto) 50.4 Lymph % (Auto) 38.9 [place] % (Auto) 7.7 Eos % (Auto) 2.3 Baso % (Auto) 0.4 Neut # (Auto) 3.5 Lymph # (Auto) 2.7 [place] # (Auto) 0.5 Eos # (Auto) 0.2 Baso # (Auto) 0.0 Immature Gran % 0.3 Nucleated RBC % 0.0 Immature Gran # 0.02 Nucleated RBCs # 0.00 Immature Plt Fraction 0.0 ABG pH 7.406 ABG pCO2 57.9 H ABG pO2 56.2 L ABG HCO3 32.5 H ABG Total CO2 31.2 H ABG O2 Saturation 88.6 L ABG Base Excess 9.0 H FiO2 21.00 Sodium 141 Potassium 3.5 Chloride 97 L Carbon Dioxide 37 H Anion Gap 10.5 BUN 16 Creatinine 0.60 GFR Calculation 126 BUN/Creatinine Ratio 26.00 H Glucose 124 H Calculated Osmolality 282.3 Calcium 9.0 Total Bilirubin 1.00 AST 24 ALT 18 Alkaline Phosphatase 84 Total Protein 5.8 L Albumin 3.0 L Globulin 2.8 Albumin/Globulin Ratio 1.0 L 10/11/16 13:47 WBC RBC Hgb Hct MCV MCH MCHC RDW Plt Count MPV Neut % (Auto) Lymph % (Auto) [place] % (Auto) Eos % (Auto) Baso % (Auto) Neut # (Auto) Lymph # (Auto) [place] # (Auto) Eos # (Auto) Baso # (Auto) Immature Gran % Nucleated RBC % Immature Gran # Nucleated RBCs # Immature Plt Fraction ABG pH Cancelled ABG pCO2 Cancelled ABG pO2 Cancelled ABG HCO3 Cancelled ABG Total CO2 Cancelled ABG O2 Saturation Cancelled ABG Base Excess Cancelled FiO2 Cancelled Sodium Potassium Chloride Carbon Dioxide Anion Gap BUN Creatinine GFR Calculation BUN/Creatinine Ratio Glucose Calculated Osmolality Calcium Total Bilirubin AST ALT Alkaline Phosphatase Total Protein Albumin Globulin Albumin/Globulin Ratio Preliminary micro results at discharge 10/10/16 Unknown Urine Culture - Preliminary Urine,Voided Gram Positive Cocci DS: Provider Date of admission: 10/10/16 14:17 Primary care physician: Justin Vega MD Attending physician on admission: Justin Vega MD Consults: 10/10/16 16:11 Consult to Physician [CONS] Routine Comment: chronic lymphedema, clots Consulting Provider: Adrián Lindo Consult to Specialist Group: Surgery Person Notified: [email or web address] Date Notified: 10/11/16 Time Notified: 08:45 Consult Notification Comment: Spoke with Dr.Tartt Lavern's nurse about consult 9:00a.m 10/11/16 10/11/16 10:35 Consult to Physician [CONS] Routine Comment: UO poor without lasix but renal fun looks normal Consulting Provider: Prem Adam Consult to Specialist Group: Nephrology Person Notified: [email or web address] Date Notified: 10/11/16 Time Notified: 10:50 10/11/16 13:43 Consult to Physician [CONS] Routine Comment: ???mercedes Consulting Provider: Sindi Snider 10/11/16 14:44 Consult to Sleep Center [CONS] Routine Reason for Sleep Center: Sleep Center Physician 10/11/16 15:01 Consult to Physical Therapy [CONS] Routine Reason for Physical Therapy: Other Consult Comment: evaluate for lymphedema compression therapy 10/11/16 16:04 Consult to Case Mgmt/Social Srvs [CONS] Routine Reason for Case Mgmt/Social Srvs: Equipment Consult Comment: lymphedema pump boots for home Discharging clinician: Steve MATHUR Expected date of discharge: 10/12/16 <Shereen Rader - Last Filed: 10/12/16 11:10> Hospital Course - Time spent with patient Time with patient DS: Greater than 30 minutes (50 min) Diagnosis - Discharge Diagnosis (1) Acute exacerbation of CHF (congestive heart failure) Status: Acute (2) Hypertension Status: Acute (3) Morbid obesity Status: Acute (4) DVT (deep venous thrombosis) Status: Acute (5) Pulmonary emboli Status: Acute (6) Lymphedema Status: Acute (7) Metabolic alkalosis Status: Acute Discharge Plan - Discharge Data Condition at Discharge: Stable Discharge Diet: heart healthy, low salt diet, other (fluid restriction ) Activity: resume usual activities as tolerated Hygiene: no restrictions Weight Bearing at Discharge: full weight bearing Driving: no restrictions - Forms/Instructions Additional Discharge Instructions: siva boots. Needs us of inferior vena cava Exam - Constitutional General appearance: normal weight, no acute distress - Head Head exam: Present: normal inspection, normocephalic - Respiratory Respiratory exam: Present: clear to auscultation bilaterally. Absent: rhonchi, wheezes - Cardiovascular Cardiovascular exam: Present: regular rate and rhythm. Absent: systolic murmur - GI/Abdominal GI/Abdominal exam: Present: normal bowel sounds, soft. Absent: tenderness - Extremities Exam Extremities exam: Present: edema - Neurological Exam Neurological exam: Present: alert, oriented X3
--- NOTE | 2016-10-12 10:40 | Nephrology Progress Note ---
Nephrology - PN: Subj Interval history: Ms. Penaloza is seen in follow-up of her edema she is improved and looking forward to going home today. She will continue with her diuretics at home and these may need to be increased in order to continue to decrease her peripheral edema. I think is reasonable to do that as long as electrolytes are being followed. There is been no hint of volume depletion thus far. She will follow- up with Dr. Louis as scheduled. She sees neurologist in [place] regarding her myotonic muscular dystrophy Exam (PN)-Nephrology - Vital Signs Vital signs: Period Temp Pulse Resp BP Sys/Mckay Pulse Ox Last 24 Hr 97 F-98.6 F 75-86 18-20 110-138/57-88 90-98 - Lab 10/12/16 04:12 10/12/16 04:12 Most recent lab results ABG pH 7.406 (7.35-7.45) 10/11/16 14:23 ABG pCO2 57.9 MM HG (35-48) H 10/11/16 14:23 ABG pO2 56.2 MM HG (80-95) L 10/11/16 14:23 ABG HCO3 32.5 MMOL/L (20-26) H 10/11/16 14:23 ABG O2 Saturation 88.6 % (95-100) L 10/11/16 14:23 Calcium 9.0 MG/DL (8.5-10.1) 10/12/16 04:12 Magnesium 2.1 MG/DL (1.8-2.4) 10/10/16 17:32 Assessment and Plan (1) Edema, peripheral Status: Acute Assessment and plan: Due to previous DVT. Also the patient has an IVC filter Current Visit: Yes
[2016-10-12] MEDS: cefTRIAXone 1,000 MG in SODIUM CHLORIDE 0.9% 100 ML IV SCH (11:14)
--- NOTE | 2016-10-12 11:37 | Event Note ---
Ms. Penaloza's edema actually looks better today and she has the lymphedema compression boot on the left leg. This is a very good system for helping control chronic lymphedema which in addition to elastic support and elevation and perhaps diuretics would be all she would need. I do think it would be reasonable to evaluate the inferior vena cava with ultrasound just to confirm whether it is patent or not. I can see her on a as needed basis.
[2016-10-12 12:43] VITALS: BP 134/78
== END 2016-10-12 14:14 | disposition home or self-care (01) ==
LOC: SUATTDRO 14:15 → N.TELEN 14:15 → INTOOBSV 14:17 → N.TELEN 10-11 15:31
PROVIDERS: ADMIT Family Medicine; ATTEND Internal Medicine

== ENCOUNTER 2017-02-12 19:25 | Inpatient (IN) ==
[2017-02-12 20:09] LABS: Basophils % 0.5 % (0.0-0.8); Eosinophils % 0.5 % (0.00-10.9); Hematocrit 44.1 VOL% (35.7-47.0); Hemoglobin 14.1 GM/DL (12.0-16.0); Immature Granulocytes % 0.4 %; Immature Granulocytes Absolute 0.03 #; Lymphocytes # 1.5 10*3/uL (1.4-4.0); Mean Corpuscular Hemoglobin 29 PG (27-34); Mean Corpuscular Volume 91.7 FL (87-102); Mean Platelet Volume 9.7 FL (9.6-12.0); Monocytes # 0.5 10*3/uL (0.11-0.8); Monocytes % 6.6 % (1.7-12.7); Neutrophils # 5.3 10*3/uL (1.4-7.4); Platelet Count 218 T/CUMM (130-400); Red Blood Count 4.81 MC/CUMM (3.8-5.5); Red Cell Distribution Width 13.4 % (9.3-17.3); White Blood Count 7.4 T/CUMM (4-12)
[2017-02-12 20:46] LABS: Alanine Aminotransferase 43 U/L (13-56); Albumin 3.5 G/DL (3.4-5.0); Alkaline Phosphatase 113 U/L (45-117); Aspartate Amino Transferase 34 U/L (0-37); Blood Urea Nitrogen 10 MG/DL (7-18); Calcium 9.3 MG/DL (8.5-10.1); Glucose 114 MG/DL (74-106); Osmolality,Calculated 274.7 MOS/KG (273-304); Potassium 3.9 MMOL/L (3.5-5.1); Sodium 138 MMOL/L (136-145); Total Protein 7.3 G/DL (6.4-8.3); Troponin I Only 0.989 NG/ML (0.00-0.045)
[2017-02-12] MEDS ORDERED: FUROSEMIDE 100 MG/10 ML VIAL IV STA (21:23)
[2017-02-12] MEDS ORDERED: cefTRIAXone 1,000 MG in SODIUM CHLORIDE 0.9% 100 ML IV STA (21:23)
[2017-02-12] MEDS ORDERED: methylPREDNISolone SOD SUC 125 MG/2 ML VIAL IV STA (21:23)
[2017-02-12] MEDS ORDERED: LEVALBUTEROL 1.25 MG/3 ML NEB RESP TX STA (21:23)
[2017-02-12 21:44] LABS: INR 1.3; PT Patient Result 13.2 SECS
[2017-02-12] MEDS ORDERED: MEPERIDINE 25 MG/1 ML VIAL IV STA (22:48)
[2017-02-12] MEDS ORDERED: ONDANSETRON 4 MG/2 ML VIAL IV STA (22:48)
[2017-02-12] MEDS ORDERED: ONDANSETRON 4 MG/2 ML VIAL ONE (23:30)
[2017-02-12] MEDS ORDERED: cefTRIAXone 1,000 MG VIAL ONE (23:30)
[2017-02-12] MEDS ORDERED: FUROSEMIDE 40 MG/4 ML VIAL ONE (23:30)
[2017-02-12] MEDS ORDERED: methylPREDNISolone SOD SUC 125 MG/2 ML VIAL ONE (23:31)
[2017-02-12] MEDS ORDERED: FUROSEMIDE 20 MG/2 ML VIAL ONE (23:31)
[2017-02-12] MEDS ORDERED: MEPERIDINE 25 MG/1 ML VIAL ONE (23:31)
[2017-02-13] MEDS ORDERED: MAGNESIUM SULF RIDER 2 GM in PREMIX 1 EACH IV PRN ×2 (00:46→11:11)
[2017-02-13] MEDS ORDERED: MAGNESIUM SULF RIDER 4 GM in PREMIX 1 EACH IV PRN ×2 (00:46→11:11)
[2017-02-13] MEDS ORDERED: CLORAZEPATE 3.75 MG TABLET PO PRN (00:46)
[2017-02-13] MEDS ORDERED: GLUCAGON 1 MG VIAL IM PRN (00:46)
[2017-02-13] MEDS ORDERED: MEPERIDINE 25 MG/1 ML VIAL IV PRN (00:46)
[2017-02-13] MEDS ORDERED: POTASSIUM CHLORIDE 20 MEQ TABLET PO PRN (00:46)
[2017-02-13] MEDS ORDERED: LEVALBUTEROL 1.25 MG/3 ML NEB RESP TX PRN (00:46)
[2017-02-13] MEDS ORDERED: IPRATROPIUM INH PRN (00:46)
[2017-02-13] MEDS ORDERED: IBUPROFEN 400 MG TABLET PO PRN (00:46)
[2017-02-13] MEDS ORDERED: ONDANSETRON 4 MG/2 ML VIAL IV PRN (00:46)
[2017-02-13] MEDS ORDERED: DEXTROSE 50% 25 GM/50 ML VIAL IV PRN (00:46)
[2017-02-13] MEDS ORDERED: ENOXAPARIN 100 MG/ML SYRINGE SUBCUT SCH ×2 (01:00→13:00)
[2017-02-13] MEDS: methylPREDNISolone SOD SUC 40 MG/1 ML VIAL IV SCH ×3 (01:36→16:44)
[2017-02-13] MEDS: BENZONATATE 100 MG CAPSULE PO SCH ×4 (01:36→20:40)
[2017-02-13] MEDS: NITROGLYCERIN 2% OINT 1 INCH/GM PACK TOP SCH ×3 (01:37→13:20)
[2017-02-13] MEDS: SODIUM CHLORIDE 0.9% 1,000 ML IV SCH (01:37)
[2017-02-13 01:42] LABS: Basophils % 0.2 % (0.0-0.8); Eosinophils % 0.1 % (0.00-10.9); Hematocrit 46.1 VOL% (35.7-47.0); Hemoglobin 14.5 GM/DL (12.0-16.0); Immature Granulocytes % 0.4 %; Immature Granulocytes Absolute 0.03 #; Lymphocytes # 0.9 10*3/uL (1.4-4.0); Lymphocytes % 11.2 % (21.3-54.2); Mean Corpuscular HGB Conc 31.5 GM/DL (32-36); Mean Corpuscular Hemoglobin 29 PG (27-34); Mean Corpuscular Volume 91.5 FL (87-102); Mean Platelet Volume 9.5 FL (9.6-12.0); Monocytes # 0.3 10*3/uL (0.11-0.8); Monocytes % 3.6 % (1.7-12.7); Neutrophils # 6.8 10*3/uL (1.4-7.4); Neutrophils % 84.5 % (38.7-73.9); Platelet Count 248 T/CUMM (130-400); Red Blood Count 5.04 MC/CUMM (3.8-5.5); Red Cell Distribution Width 13.4 % (9.3-17.3); White Blood Count 8.1 T/CUMM (4-12)
[2017-02-13 02:21] LABS: Albumin 3.9 G/DL (3.4-5.0); Bilirubin,Total 0.8 MG/DL (0.2-1.0); Calcium 9.3 MG/DL (8.5-10.1); Osmolality,Calculated 277.5 MOS/KG (273-304); Potassium 3.7 MMOL/L (3.5-5.1); Risk Ratio 2.03; Thyroid Stimulating Hormone 1.29 uIU/ml (0.358-3.74); Total Protein 7.3 G/DL (6.4-8.3); VLDL CHOLESTEROL 13.8 MG/DL
[2017-02-13 02:36] LABS: CKMB % 2.2 %
[2017-02-13 02:50] LABS: Troponin I Only 4.19 NG/ML (0.00-0.045)
[2017-02-13 05:25] LABS: CKMB % 1.7 %
[2017-02-13] MEDS ORDERED: INSULIN REGULAR 100 UNIT/ML SUBCUT SCH (07:30)
[2017-02-13 08:20] LABS: CKMB % 1.4 %
[2017-02-13 08:23] LABS: Troponin I Only 5.18 NG/ML (0.00-0.045)
[2017-02-13] MEDS ORDERED: ASPIRIN EC 325 MG TABLET PO SCH (09:00)
[2017-02-13] MEDS: FUROSEMIDE 40 MG/4 ML VIAL IV SCH ×2 (09:08→16:44)
[2017-02-13] MEDS: LEVOFLOXACIN INJ 500 MG in PREMIX 1 EACH IV SCH (09:19)
[2017-02-13] MEDS: PANTOPRAZOLE 40 MG TABLET PO SCH (09:20)
[2017-02-13] MEDS ORDERED: ACETAMINOPHEN 325 MG TABLET PO PRN (11:11)
[2017-02-13] MEDS: DORNASE ALFA 2.5 MG/2.5 ML VIAL RESP TX SCH ×2 (13:18→19:25)
[2017-02-13] MEDS ORDERED: diphenhydrAMINE CAP 25 MG CAPSULE PO PRN (14:20)
[2017-02-13] MEDS: RIVAROXABAN 20 MG TABLET PO SCH (18:35)
[2017-02-13] MEDS: traMADol 50 MG TABLET PO SCH (18:35)
[2017-02-13] MEDS: SPIRONOLACTONE 25 MG TABLET PO SCH (18:35)
[2017-02-13] MEDS ORDERED: CARVEDILOL 3.125 MG TABLET PO SCH (19:00)
[2017-02-13] MEDS: IPRATROPIUM 500 MCG/2.5 ML NEB RESP TX SCH (19:25)
[2017-02-13] MEDS: DOCUSATE SODIUM 100 MG CAPSULE PO SCH (20:40)
[2017-02-13] MEDS: MONTELUKAST 10 MG TABLET PO SCH (20:40)
[2017-02-13] MEDS: CARVEDILOL 3.125 MG TABLET PO SCH (20:40)
[2017-02-14] MEDS: SODIUM CHLORIDE 0.9% 1,000 ML IV SCH (01:47)
[2017-02-14] MEDS: methylPREDNISolone SOD SUC 40 MG/1 ML VIAL IV SCH ×2 (01:47→09:32)
[2017-02-14 06:39] LABS: Hemoglobin 14.3 GM/DL (12.0-16.0); Immature Granulocytes % 0.3 %; Immature Granulocytes Absolute 0.02 #; Lymphocytes % 16.6 % (21.3-54.2); Mean Corpuscular HGB Conc 31.8 GM/DL (32-36); Mean Corpuscular Hemoglobin 29 PG (27-34); Mean Corpuscular Volume 91.1 FL (87-102); Mean Platelet Volume 9.8 FL (9.6-12.0); Monocytes # 0.3 10*3/uL (0.11-0.8); Monocytes % 4.7 % (1.7-12.7); Neutrophils # 4.5 10*3/uL (1.4-7.4); Neutrophils % 78.4 % (38.7-73.9); Platelet Count 246 T/CUMM (130-400); Red Blood Count 4.94 MC/CUMM (3.8-5.5); Red Cell Distribution Width 13.2 % (9.3-17.3); White Blood Count 5.8 T/CUMM (4-12)
[2017-02-14 07:03] LABS: Calcium 9.2 MG/DL (8.5-10.1); Magnesium 2.3 MG/DL (1.8-2.4); Osmolality,Calculated 281.7 MOS/KG (273-304)
[2017-02-14 07:16] LABS: Blood Urea Nitrogen 24 MG/DL (7-18); Calcium 9.1 MG/DL (8.5-10.1); Glucose 138 MG/DL (74-106); Magnesium 2.3 MG/DL (1.8-2.4); Osmolality,Calculated 280.7 MOS/KG (273-304); Potassium 4.2 MMOL/L (3.5-5.1); Sodium 138 MMOL/L (136-145); Thyroid Stimulating Hormone 0.214 uIU/ml (0.358-3.74)
[2017-02-14] MEDS: DORNASE ALFA 2.5 MG/2.5 ML VIAL RESP TX SCH ×2 (07:41→20:12)
[2017-02-14] MEDS ORDERED: LISINOPRIL 2.5 MG TABLET PO SCH (09:00)
[2017-02-14] MEDS: DOCUSATE SODIUM 100 MG CAPSULE PO SCH ×2 (09:29→20:56)
[2017-02-14] MEDS: ASPIRIN EC 81 MG TABLET PO SCH (09:29)
[2017-02-14] MEDS: PANTOPRAZOLE 40 MG TABLET PO SCH (09:29)
[2017-02-14] MEDS: BENZONATATE 100 MG CAPSULE PO SCH ×3 (09:29→20:56)
[2017-02-14] MEDS: CARVEDILOL 3.125 MG TABLET PO SCH (09:30)
[2017-02-14] MEDS: LEVOFLOXACIN INJ 500 MG in PREMIX 1 EACH IV SCH (09:32)
[2017-02-14] MEDS: FUROSEMIDE 40 MG/4 ML VIAL IV SCH (09:32)
[2017-02-14 09:33] LABS: Albumin 3.6 G/DL (3.4-5.0); Bilirubin,Total 1.2 MG/DL (0.2-1.0); Calcium 9.4 MG/DL (8.5-10.1); Osmolality,Calculated 283.7 MOS/KG (273-304); Potassium 3.4 MMOL/L (3.5-5.1); Total Protein 6.8 G/DL (6.4-8.3)
[2017-02-14] MEDS ORDERED: FUROSEMIDE 40 MG TABLET PO SCH (11:02)
[2017-02-14] MEDS: MEROPENEM 1,000 MG in SYRINGE 1 EACH IV SCH ×2 (11:21→21:23)
[2017-02-14] MEDS ORDERED: SODIUM CHLORIDE 0.45% 500 ML IV ONE ×2 (15:23→17:26)
[2017-02-14 17:59] LABS: Apearance,Urine CLOUDY (Clear); Bacteria,Urine Occasional /HPF (Few); Bilirubin,Urine Negative (Negative); Blood, Urine Small mg/dL (Negative); Glucose,Urine (UA) 50 mg/dL (Negative); Hyaline Casts,Urine 2 /LPF (0-3); Ketones,Urine 5 mg/dL (Negative); Mucus,Urine Occasional /LPF (Occasional); Nitrite,Urine Negative (Negative); Protein,Urine Negative; RBC,Urine 3 /HPF (0-4); Squamous Epithelial Cell,Urine Occasional /HPF (0-10); Urine Color Yellow (Yellow); Urine Urobilinogen < 2.0 EU/DL (0.2-1.0); WBC,Urine 21 /HPF (0-6)
[2017-02-14 18:12] LABS: Basophils % 0.1 % (0.0-0.8); Hematocrit 45.1 VOL% (35.7-47.0); Hemoglobin 14.4 GM/DL (12.0-16.0); Immature Granulocytes % 0.5 %; Immature Granulocytes Absolute 0.05 #; Lymphocytes # 1.2 10*3/uL (1.4-4.0); Lymphocytes % 10.9 % (21.3-54.2); Mean Corpuscular HGB Conc 31.9 GM/DL (32-36); Mean Corpuscular Hemoglobin 29 PG (27-34); Mean Corpuscular Volume 91.7 FL (87-102); Mean Platelet Volume 9.9 FL (9.6-12.0); Monocytes # 0.6 10*3/uL (0.11-0.8); Monocytes % 5.3 % (1.7-12.7); Neutrophils # 9.2 10*3/uL (1.4-7.4); Neutrophils % 83.2 % (38.7-73.9); Platelet Count 294 T/CUMM (130-400); Red Blood Count 4.92 MC/CUMM (3.8-5.5); Red Cell Distribution Width 13.4 % (9.3-17.3); White Blood Count 11.1 T/CUMM (4-12)
[2017-02-14] MEDS: traMADol 50 MG TABLET PO SCH (18:39)
[2017-02-14] MEDS: SPIRONOLACTONE 25 MG TABLET PO SCH (18:40)
[2017-02-14 18:50] LABS: Calcium 8.9 MG/DL (8.5-10.1); Magnesium 2.1 MG/DL (1.8-2.4); Osmolality,Calculated 282.7 MOS/KG (273-304); Potassium 3.9 MMOL/L (3.5-5.1)
[2017-02-14] MEDS: RIVAROXABAN 20 MG TABLET PO SCH (18:55)
[2017-02-14] MEDS: IPRATROPIUM 500 MCG/2.5 ML NEB RESP TX SCH (20:12)
[2017-02-14] MEDS: MONTELUKAST 10 MG TABLET PO SCH (20:56)
[2017-02-15] MEDS: MEROPENEM 1,000 MG in SYRINGE 1 EACH IV SCH ×3 (03:10→18:07)
[2017-02-15 05:20] LABS: Hematocrit 43.7 VOL% (35.7-47.0); Immature Granulocytes % 0.3 %; Immature Granulocytes Absolute 0.03 #; Lymphocytes # 2.4 10*3/uL (1.4-4.0); Lymphocytes % 23.4 % (21.3-54.2); Mean Corpuscular Hemoglobin 29 PG (27-34); Mean Corpuscular Volume 91.2 FL (87-102); Mean Platelet Volume 9.8 FL (9.6-12.0); Monocytes # 0.8 10*3/uL (0.11-0.8); Neutrophils % 68.3 % (38.7-73.9); Platelet Count 274 T/CUMM (130-400); Red Blood Count 4.79 MC/CUMM (3.8-5.5); Red Cell Distribution Width 13.6 % (9.3-17.3); White Blood Count 10.2 T/CUMM (4-12)
[2017-02-15 05:47] LABS: Albumin 3.2 G/DL (3.4-5.0); Bilirubin,Total 0.9 MG/DL (0.2-1.0); Calcium 8.8 MG/DL (8.5-10.1); Osmolality,Calculated 282.7 MOS/KG (273-304); Potassium 3.5 MMOL/L (3.5-5.1); Total Protein 6.1 G/DL (6.4-8.3)
[2017-02-15 05:48] LABS: Calcium 8.9 MG/DL (8.5-10.1); Magnesium 2.1 MG/DL (1.8-2.4); Osmolality,Calculated 280.8 MOS/KG (273-304); Potassium 3.3 MMOL/L (3.5-5.1)
[2017-02-15] MEDS: DOCUSATE SODIUM 100 MG CAPSULE PO SCH ×2 (08:35→20:59)
[2017-02-15] MEDS: PANTOPRAZOLE 40 MG TABLET PO SCH (08:35)
[2017-02-15] MEDS: ASPIRIN EC 81 MG TABLET PO SCH (08:35)
[2017-02-15] MEDS: BENZONATATE 100 MG CAPSULE PO SCH ×3 (10:04→20:58)
[2017-02-15] MEDS: FUROSEMIDE 40 MG TABLET PO SCH (10:05)
[2017-02-15] MEDS: DORNASE ALFA 2.5 MG/2.5 ML VIAL RESP TX SCH ×2 (17:13→19:18)
[2017-02-15] MEDS: SPIRONOLACTONE 25 MG TABLET PO SCH (18:05)
[2017-02-15] MEDS: RIVAROXABAN 20 MG TABLET PO SCH (18:05)
[2017-02-15] MEDS: traMADol 50 MG TABLET PO SCH (18:05)
[2017-02-15] MEDS: IPRATROPIUM 500 MCG/2.5 ML NEB RESP TX SCH (19:18)
[2017-02-15] MEDS: MONTELUKAST 10 MG TABLET PO SCH (20:58)
[2017-02-16] MEDS: MEROPENEM 1,000 MG in SYRINGE 1 EACH IV SCH ×3 (03:10→18:23)
[2017-02-16 03:44] LABS: Basophils % 0.1 % (0.0-0.8); Eosinophils % 0.1 % (0.00-10.9); Hematocrit 42.9 VOL% (35.7-47.0); Hemoglobin 13.7 GM/DL (12.0-16.0); Immature Granulocytes % 0.3 %; Immature Granulocytes Absolute 0.02 #; Lymphocytes # 3.3 10*3/uL (1.4-4.0); Lymphocytes % 43.8 % (21.3-54.2); Mean Corpuscular HGB Conc 31.9 GM/DL (32-36); Mean Corpuscular Hemoglobin 29 PG (27-34); Mean Corpuscular Volume 90.9 FL (87-102); Mean Platelet Volume 9.6 FL (9.6-12.0); Monocytes # 0.5 10*3/uL (0.11-0.8); Monocytes % 6.4 % (1.7-12.7); Neutrophils # 3.8 10*3/uL (1.4-7.4); Neutrophils % 49.3 % (38.7-73.9); Platelet Count 247 T/CUMM (130-400); Red Blood Count 4.72 MC/CUMM (3.8-5.5); Red Cell Distribution Width 13.6 % (9.3-17.3); White Blood Count 7.6 T/CUMM (4-12)
[2017-02-16 04:25] LABS: Magnesium 2.1 MG/DL (1.8-2.4); Osmolality,Calculated 278.8 MOS/KG (273-304); Potassium 3.3 MMOL/L (3.5-5.1)
[2017-02-16 04:28] LABS: Albumin 3.2 G/DL (3.4-5.0); Bilirubin,Total 0.8 MG/DL (0.2-1.0); Calcium 8.7 MG/DL (8.5-10.1); Potassium 3.4 MMOL/L (3.5-5.1); Total Protein 5.9 G/DL (6.4-8.3)
[2017-02-16] MEDS: DORNASE ALFA 2.5 MG/2.5 ML VIAL RESP TX SCH ×2 (07:50→19:25)
[2017-02-16] MEDS: DOCUSATE SODIUM 100 MG CAPSULE PO SCH ×2 (09:00→21:11)
[2017-02-16] MEDS: BENZONATATE 100 MG CAPSULE PO SCH ×3 (09:00→21:11)
[2017-02-16] MEDS: FUROSEMIDE 40 MG TABLET PO SCH (09:00)
[2017-02-16] MEDS: ASPIRIN EC 81 MG TABLET PO SCH (09:00)
[2017-02-16] MEDS: PANTOPRAZOLE 40 MG TABLET PO SCH (09:00)
[2017-02-16] MEDS: RIVAROXABAN 20 MG TABLET PO SCH (18:22)
[2017-02-16] MEDS: traMADol 50 MG TABLET PO SCH (18:22)
[2017-02-16] MEDS: SPIRONOLACTONE 25 MG TABLET PO SCH (18:22)
[2017-02-16] MEDS: IPRATROPIUM 500 MCG/2.5 ML NEB RESP TX SCH (19:25)
[2017-02-16] MEDS: MONTELUKAST 10 MG TABLET PO SCH (21:11)
[2017-02-17] MEDS: MEROPENEM 1,000 MG in SYRINGE 1 EACH IV SCH ×3 (03:53→18:14)
[2017-02-17 05:55] LABS: Albumin 2.9 G/DL (3.4-5.0); Bilirubin,Total 0.7 MG/DL (0.2-1.0); Calcium 8.8 MG/DL (8.5-10.1); Magnesium 2.2 MG/DL (1.8-2.4); Osmolality,Calculated 278.5 MOS/KG (273-304); Potassium 3.5 MMOL/L (3.5-5.1); Total Protein 5.6 G/DL (6.4-8.3)
[2017-02-17] MEDS: DORNASE ALFA 2.5 MG/2.5 ML VIAL RESP TX SCH ×2 (08:01→20:59)
[2017-02-17] MEDS: FUROSEMIDE 40 MG TABLET PO SCH (08:57)
[2017-02-17] MEDS: BENZONATATE 100 MG CAPSULE PO SCH ×3 (08:57→21:28)
[2017-02-17] MEDS: PANTOPRAZOLE 40 MG TABLET PO SCH (08:57)
[2017-02-17] MEDS: ASPIRIN EC 81 MG TABLET PO SCH (08:57)
[2017-02-17] MEDS: DOCUSATE SODIUM 100 MG CAPSULE PO SCH ×2 (08:58→21:28)
[2017-02-17] MEDS: SPIRONOLACTONE 25 MG TABLET PO SCH (18:12)
[2017-02-17] MEDS: traMADol 50 MG TABLET PO SCH (18:13)
[2017-02-17] MEDS: RIVAROXABAN 20 MG TABLET PO SCH (18:13)
[2017-02-17] MEDS: IPRATROPIUM 500 MCG/2.5 ML NEB RESP TX SCH (20:57)
[2017-02-17] MEDS: MONTELUKAST 10 MG TABLET PO SCH (21:28)
[2017-02-18] MEDS: MEROPENEM 1,000 MG in SYRINGE 1 EACH IV SCH ×3 (03:47→18:56)
[2017-02-18] MEDS: DORNASE ALFA 2.5 MG/2.5 ML VIAL RESP TX SCH ×2 (08:13→20:31)
[2017-02-18] MEDS: FUROSEMIDE 40 MG TABLET PO SCH (09:09)
[2017-02-18] MEDS: ASPIRIN EC 81 MG TABLET PO SCH (09:10)
[2017-02-18] MEDS: PANTOPRAZOLE 40 MG TABLET PO SCH (09:10)
[2017-02-18] MEDS: DOCUSATE SODIUM 100 MG CAPSULE PO SCH ×2 (09:10→21:02)
[2017-02-18] MEDS: BENZONATATE 100 MG CAPSULE PO SCH ×3 (09:10→21:02)
[2017-02-18] MEDS ORDERED: ZALEPLON 5 MG CAPSULE PO PRN (18:04)
[2017-02-18] MEDS: traMADol 50 MG TABLET PO SCH (18:53)
[2017-02-18] MEDS: RIVAROXABAN 20 MG TABLET PO SCH (18:55)
[2017-02-18] MEDS: SPIRONOLACTONE 25 MG TABLET PO SCH (18:55)
[2017-02-18] MEDS: IPRATROPIUM 500 MCG/2.5 ML NEB RESP TX SCH (20:31)
[2017-02-18] MEDS: MONTELUKAST 10 MG TABLET PO SCH (21:02)
[2017-02-19] MEDS: MEROPENEM 1,000 MG in SYRINGE 1 EACH IV SCH ×3 (03:22→18:21)
[2017-02-19] MEDS: IPRATROPIUM 500 MCG/2.5 ML NEB RESP TX SCH ×2 (08:15→19:27)
[2017-02-19] MEDS: DORNASE ALFA 2.5 MG/2.5 ML VIAL RESP TX SCH ×2 (08:19→19:32)
[2017-02-19] MEDS: METOPROLOL SUCCINATE XL 25 MG TABLET PO SCH (09:23)
[2017-02-19] MEDS: BENZONATATE 100 MG CAPSULE PO SCH ×3 (09:23→21:23)
[2017-02-19] MEDS: FUROSEMIDE 40 MG TABLET PO SCH (09:23)
[2017-02-19] MEDS: ASPIRIN EC 81 MG TABLET PO SCH (09:23)
[2017-02-19] MEDS: PANTOPRAZOLE 40 MG TABLET PO SCH (09:24)
[2017-02-19] MEDS: ROSUVASTATIN 20 MG TABLET PO SCH (09:24)
[2017-02-19] MEDS: DOCUSATE SODIUM 100 MG CAPSULE PO SCH ×2 (09:24→21:23)
[2017-02-19] MEDS: RIVAROXABAN 20 MG TABLET PO SCH (18:20)
[2017-02-19] MEDS: SPIRONOLACTONE 25 MG TABLET PO SCH (18:20)
[2017-02-19] MEDS: traMADol 50 MG TABLET PO SCH (18:20)
[2017-02-19] MEDS: MONTELUKAST 10 MG TABLET PO SCH (21:23)
[2017-02-20] MEDS: MEROPENEM 1,000 MG in SYRINGE 1 EACH IV SCH ×2 (03:35→11:32)
[2017-02-20] MEDS: ASPIRIN EC 81 MG TABLET PO SCH (08:48)
[2017-02-20] MEDS: PANTOPRAZOLE 40 MG TABLET PO SCH (08:48)
[2017-02-20] MEDS: BENZONATATE 100 MG CAPSULE PO SCH ×2 (08:48→14:28)
[2017-02-20] MEDS: DOCUSATE SODIUM 100 MG CAPSULE PO SCH ×2 (08:48→08:51)
[2017-02-20] MEDS: ROSUVASTATIN 20 MG TABLET PO SCH (08:48)
[2017-02-20] MEDS: METOPROLOL SUCCINATE XL 25 MG TABLET PO SCH (08:49)
[2017-02-20] MEDS: FUROSEMIDE 40 MG TABLET PO SCH (08:49)
[2017-02-20] MEDS ORDERED: CLOPIDOGREL 300 MG TABLET PO ONE (10:13)
[2017-02-20] MEDS: DORNASE ALFA 2.5 MG/2.5 ML VIAL RESP TX SCH (11:01)
[2017-02-21] MEDS ORDERED: CLOPIDOGREL 75 MG TABLET PO SCH (09:00)
[2017-02-22 03:58] VITALS: BP 155/95
== END 2017-02-20 15:29 | disposition home health service (06) | DRG 190 ==
LOC: N.ED 19:25 → SUPCPDRO 22:59 → N.EDINP 22:59 → N.ICU 23:38 → N.TELEN 02-14 15:08
PROVIDERS: ADMIT Internal Medicine Interventional Cardiology; ATTEND Internal Medicine Interventional Cardiology

== ENCOUNTER 2017-11-06 11:23 | Inpatient (IN) ==
[2017-11-06 12:21] LABS: Basophils % 0.3 % (0.0-0.8); Eosinophils % 0.1 % (0.00-10.9); Hematocrit 45.4 VOL% (35.7-47.0); Hemoglobin 14.2 GM/DL (12.0-16.0); Immature Granulocytes % 0.5 %; Immature Granulocytes Absolute 0.04 #; Lymphocytes # 1.6 10*3/uL (1.4-4.0); Mean Corpuscular HGB Conc 31.3 GM/DL (32-36); Mean Corpuscular Hemoglobin 29 PG (27-34); Mean Corpuscular Volume 92.1 FL (87-102); Mean Platelet Volume 9.6 FL (9.6-12.0); Monocytes # 0.3 10*3/uL (0.11-0.8); Monocytes % 3.4 % (1.7-12.7); Neutrophils # 5.5 10*3/uL (1.4-7.4); Neutrophils % 74.7 % (38.7-73.9); Platelet Count 264 T/CUMM (130-400); Red Blood Count 4.93 MC/CUMM (3.8-5.5); Red Cell Distribution Width 13.2 % (9.3-17.3); White Blood Count 7.4 T/CUMM (4-12)
[2017-11-06 12:56] LABS: Bilirubin,Total 0.8 MG/DL (0.2-1.0); Calcium 9.6 MG/DL (8.5-10.1); Osmolality,Calculated 279.3 MOS/KG (273-304); Potassium 4.5 MMOL/L (3.5-5.1); Total Protein 7.6 G/DL (6.4-8.3)
[2017-11-06 12:59] LABS: Troponin I 1.89 NG/ML (0.00-0.045)
[2017-11-06] MEDS ORDERED: ENOXAPARIN 100 MG/ML SYRINGE SUBCUT STA (13:43)
[2017-11-06] MEDS ORDERED: ONDANSETRON 4 MG/2 ML VIAL IV STA (13:43)
[2017-11-06] MEDS ORDERED: NITROGLYCERIN 2% OINT 1 INCH/GM PACK TOP STA (13:43)
[2017-11-06] MEDS ORDERED: ASPIRIN 325 MG TABLET PO STA (13:43)
[2017-11-06] MEDS ORDERED: ONDANSETRON 4 MG/2 ML VIAL IV PRN (15:23)
[2017-11-06] MEDS ORDERED: DEXTROSE 50% 25 GM/50 ML VIAL IV PRN (15:23)
[2017-11-06] MEDS ORDERED: LACTULOSE 20 GM/30 ML UDCUP PO PRN (15:23)
[2017-11-06] MEDS ORDERED: ACETAMINOPHEN 325 MG TABLET PO PRN (15:23)
[2017-11-06] MEDS ORDERED: GLUCAGON 1 MG VIAL IM PRN (15:23)
[2017-11-06] MEDS ORDERED: LEVALBUTEROL 0.63 MG/3 ML NEB RESP TX PRN (15:23)
[2017-11-06] MEDS ORDERED: CLORAZEPATE 3.75 MG TABLET PO PRN (15:28)
[2017-11-06] MEDS ORDERED: IPRATROPIUM 500 MCG/2.5 ML NEB RESP TX PRN (15:28)
[2017-11-06] MEDS ORDERED: FUROSEMIDE 40 MG TABLET PO SCH (15:30)
[2017-11-06 15:53] LABS: Apearance,Urine CLEAR (Clear); Bilirubin,Urine Negative (Negative); Blood, Urine Negative (Negative); Glucose,Urine (UA) Negative (Negative); Ketones,Urine Negative (Negative); Mucus,Urine Occasional /LPF (Occasional); Nitrite,Urine Negative (Negative); Protein,Urine Negative; Urine Color Straw (Yellow); Urine Specific Gravity 1.008 (1.001-1.035); Urine Urobilinogen < 2.0 EU/DL (0.2-1.0)
[2017-11-06 16:02] LABS: Allen Test Positive
[2017-11-06 16:09] LABS: Barbiturates Screen,Urine Negative (Negative); Benzodiazepines Screen,Urine Negative (Negative); Cannabinoid Screen,Urine Negative (Negative); Opiate Screen,Urine Negative (Negative); Phencyclidine Screen,Urine Negative (Negative)
[2017-11-06 16:21] LABS: ABG Base Excess 4.6 MMOL/L (-2.5-2.5); ABG HCO3 28.5 MMOL/L (20-26); ABG Oxygen Saturation 96.7 % (95-100); ABG PCO2 51.7 MM HG (35-48); ABG PH 7.385 (7.35-7.45); ABG PO2 89.5 MM HG (80-95); ABG TCO2 27.1 MMOL/L (23-27)
[2017-11-06] MEDS: ASPIRIN EC 81 MG TABLET PO SCH (16:55)
[2017-11-06] MEDS: ROSUVASTATIN 20 MG TABLET PO SCH (17:30)
[2017-11-06] MEDS: PANTOPRAZOLE 40 MG VIAL IV SCH (17:30)
[2017-11-06] MEDS: SODIUM CHLORIDE 0.45% 1,000 ML IV SCH (17:30)
[2017-11-06] MEDS: METOPROLOL SUCCINATE XL 25 MG TABLET PO SCH (17:30)
[2017-11-06] MEDS: INSULIN LISPRO 100 UNIT/ML SUBCUT SCH ×2 (17:43→20:51)
[2017-11-06] MEDS: FUROSEMIDE 40 MG/4 ML VIAL IV SCH (18:16)
[2017-11-06] MEDS: NITROGLYCERIN 2% OINT 1 INCH/GM PACK TOP SCH (18:19)
[2017-11-06] MEDS ORDERED: TICAGRELOR 90 MG TABLET PO ONE (18:47)
[2017-11-06] MEDS: MONTELUKAST 10 MG TABLET PO SCH (20:51)
[2017-11-06] MEDS: traMADol 50 MG TABLET PO SCH (20:51)
[2017-11-06] MEDS: RIVAROXABAN 20 MG TABLET PO SCH (20:51)
[2017-11-06] MEDS ORDERED: TICAGRELOR 90 MG TABLET PO SCH (21:00)
[2017-11-06] MEDS ORDERED: SPIRONOLACTONE 25 MG TABLET PO SCH (21:00)
[2017-11-07] MEDS: NITROGLYCERIN 2% OINT 1 INCH/GM PACK TOP SCH ×4 (01:00→17:12)
[2017-11-07 03:17] LABS: Basophils % 0.5 % (0.0-0.8); Eosinophils # 0.1 10*3/uL (0.0-0.87); Eosinophils % 0.8 % (0.00-10.9); Hematocrit 41.5 VOL% (35.7-47.0); Hemoglobin 12.7 GM/DL (12.0-16.0); Immature Granulocytes % 0.3 %; Immature Granulocytes Absolute 0.03 #; Lymphocytes # 2.9 10*3/uL (1.4-4.0); Mean Corpuscular HGB Conc 30.6 GM/DL (32-36); Mean Corpuscular Hemoglobin 28 PG (27-34); Mean Platelet Volume 9.9 FL (9.6-12.0); Monocytes # 0.6 10*3/uL (0.11-0.8); Monocytes % 7.1 % (1.7-12.7); Neutrophils % 57.3 % (38.7-73.9); Platelet Count 290 T/CUMM (130-400); Red Blood Count 4.51 MC/CUMM (3.8-5.5); Red Cell Distribution Width 13.5 % (9.3-17.3); White Blood Count 8.6 T/CUMM (4-12)
[2017-11-07 04:43] LABS: Calcium 9.1 MG/DL (8.5-10.1); Osmolality,Calculated 276.5 MOS/KG (273-304); Potassium 3.4 MMOL/L (3.5-5.1); Total Protein 6.3 G/DL (6.4-8.3)
[2017-11-07] MEDS: SODIUM CHLORIDE 0.45% 1,000 ML IV SCH (06:49)
[2017-11-07] MEDS ORDERED: POTASSIUM CHLORIDE 20 MEQ TABLET PO ONE (07:23)
[2017-11-07] MEDS: INSULIN LISPRO 100 UNIT/ML SUBCUT SCH (08:52)
[2017-11-07] MEDS: FUROSEMIDE 40 MG/4 ML VIAL IV SCH ×2 (09:15→15:37)
[2017-11-07] MEDS: ROSUVASTATIN 20 MG TABLET PO SCH (09:16)
[2017-11-07] MEDS: TICAGRELOR 90 MG TABLET PO SCH ×2 (09:16→21:42)
[2017-11-07] MEDS: ASPIRIN EC 81 MG TABLET PO SCH (09:16)
[2017-11-07] MEDS: METOPROLOL SUCCINATE XL 25 MG TABLET PO SCH (09:16)
[2017-11-07] MEDS: PANTOPRAZOLE 40 MG VIAL IV SCH (15:37)
[2017-11-07] MEDS ORDERED: SPIRONOLACTONE 25 MG TABLET PO SCH (21:00)
[2017-11-07] MEDS: MONTELUKAST 10 MG TABLET PO SCH (21:41)
[2017-11-07] MEDS: METOPROLOL TARTRATE 25 MG TABLET PO SCH (21:41)
[2017-11-07] MEDS: RIVAROXABAN 20 MG TABLET PO SCH (21:42)
[2017-11-07] MEDS: traMADol 50 MG TABLET PO SCH (21:42)
[2017-11-08] MEDS: NITROGLYCERIN 2% OINT 1 INCH/GM PACK TOP SCH ×3 (05:53→12:25)
[2017-11-08] MEDS: ZINC OXIDE PASTE 113 GM TUBE TOP SCH ×2 (05:53→09:17)
[2017-11-08 05:57] LABS: Basophils % 0.4 % (0.0-0.8); Eosinophils # 0.1 10*3/uL (0.0-0.87); Eosinophils % 1.8 % (0.00-10.9); Hemoglobin 13.4 GM/DL (12.0-16.0); Immature Granulocytes % 0.3 %; Immature Granulocytes Absolute 0.02 #; Lymphocytes # 2.7 10*3/uL (1.4-4.0); Lymphocytes % 34.9 % (21.3-54.2); Mean Corpuscular HGB Conc 31.2 GM/DL (32-36); Mean Corpuscular Hemoglobin 29 PG (27-34); Mean Corpuscular Volume 93.7 FL (87-102); Mean Platelet Volume 9.9 FL (9.6-12.0); Monocytes # 0.4 10*3/uL (0.11-0.8); Neutrophils # 4.5 10*3/uL (1.4-7.4); Neutrophils % 57.6 % (38.7-73.9); Platelet Count 220 T/CUMM (130-400); Red Blood Count 4.59 MC/CUMM (3.8-5.5); Red Cell Distribution Width 13.4 % (9.3-17.3); White Blood Count 7.8 T/CUMM (4-12)
[2017-11-08 06:10] LABS: Calcium 9.3 MG/DL (8.5-10.1); Osmolality,Calculated 276.7 MOS/KG (273-304); Potassium 3.7 MMOL/L (3.5-5.1)
[2017-11-08] MEDS: FUROSEMIDE 40 MG/4 ML VIAL IV SCH (09:16)
[2017-11-08] MEDS: ROSUVASTATIN 20 MG TABLET PO SCH (09:17)
[2017-11-08] MEDS: METOPROLOL TARTRATE 25 MG TABLET PO SCH (09:17)
[2017-11-08] MEDS: ASPIRIN EC 81 MG TABLET PO SCH (09:17)
[2017-11-08] MEDS: TICAGRELOR 90 MG TABLET PO SCH (09:17)
[2017-11-08 11:35] VITALS: BP 101/67
[2017-11-08] MEDS: PANTOPRAZOLE 40 MG VIAL IV SCH (15:40)
[2017-11-09] MEDS ORDERED: FUROSEMIDE 40 MG TABLET PO SCH (09:00)
== END 2017-11-08 16:40 | disposition home or self-care (01) | DRG 190 ==
LOC: N.ED 11:23 → N.EDINP 16:39 → N.CC 16:48 → N.TELEN 11-07 15:06
PROVIDERS: ADMIT Internal Medicine; ATTEND Internal Medicine

== ENCOUNTER 2020-10-31 00:18 | Observation (INO) ==
[2020-10-31] MEDS ORDERED: NALOXONE 0.4 MG/ML VIAL ONE (00:24)
[2020-10-31] MEDS ORDERED: NALOXONE 0.4 MG/ML VIAL IV STA (00:31)
[2020-10-31 01:12] LABS: Mean Corpuscular Volume 100.5 FL (87-102)
[2020-10-31 01:21] LABS: Allen Test Positive
[2020-10-31 01:23] LABS: ABG Base Excess 10.3 MMOL/L (-2.5-2.5); ABG HCO3 47.5 MMOL/L (20-26); ABG Oxygen Saturation 97.8 % (95-100); ABG PO2 127.9 MM HG (80-95); ABG TCO2 52.4 MMOL/L (23-27)
[2020-10-31 01:26] LABS: ABG PCO2 160.2 MM HG (35-48)
[2020-10-31] MEDS ORDERED: SODIUM BICARBONATE 50 MEQ/50 ML VIAL IV STA (01:31)
[2020-10-31 01:34] LABS: Basophils % 0.3 % (0.0-0.8); Eosinophils % 0.1 % (0.00-10.9); Hematocrit 55.6 VOL% (35.7-47.0); Immature Granulocytes % 1.6 %; Immature Granulocytes Absolute 0.11 #; Lymphocytes # 1.1 10*3/uL (1.4-4.0); Lymphocytes % 16.6 % (21.3-54.2); Mean Corpuscular HGB Conc 28.2 GM/DL (32-36); Mean Platelet Volume 9.6 FL (9.6-12.0); Monocytes % 10.2 % (1.7-12.7); Neutrophils % 71.2 % (38.7-73.9); Platelet Count 236 T/CUMM (130-400); Red Blood Count 5.53 MC/CUMM (3.8-5.5); White Blood Count 6.8 T/CUMM (4-12)
[2020-10-31 01:36] LABS: Hemoglobin 15.7 GM/DL (12.0-16.0)
[2020-10-31 01:44] LABS: Bilirubin,Urine Negative (Negative); Blood, Urine Negative (Negative); Glucose,Urine (UA) Negative (Negative); Ketones,Urine Negative (Negative); Mucus,Urine Many /LPF (Occasional); Nitrite,Urine Negative (Negative); Protein,Urine 30 MG/DL; RBC,Urine 7 /HPF (0-4); Squamous Epithelial Cell,Urine Occasional /HPF (0-10); Urine Appearance Slightly Hazy (Clear); Urine Color Yellow (Yellow); Urine Specific Gravity 1.027 (1.001-1.035)
[2020-10-31 01:50] LABS: Barbiturates Screen,Urine Negative (Negative); Benzodiazepines Screen,Urine Negative (Negative); Cannabinoid Screen,Urine Negative (Negative); Opiate Screen,Urine Negative (Negative); Phencyclidine Screen,Urine Negative (Negative)
[2020-10-31 02:23] LABS: Alanine Aminotransferase 18 U/L (13-56); Albumin 3.2 G/DL (3.4-5.0); Alkaline Phosphatase 99 U/L (45-117); Aspartate Amino Transferase 23 U/L (0-37); Blood Urea Nitrogen 9 MG/DL (7-18); Calcium 9.2 MG/DL (8.5-10.1); Carbon Dioxide 43 MMOL/L (21-32); Estimated Glom Filtration Rate 156 ML/MIN; Glucose 135 MG/DL (74-106); Osmolality,Calculated 273.8 MOS/KG (273-304); Potassium 3.2 MMOL/L (3.5-5.1); Sodium 137 MMOL/L (136-145); Total Protein 6.9 G/DL (6.4-8.2)
[2020-10-31] MEDS ORDERED: LORazepam 2 MG/1 ML VIAL IV PRN (04:06)
[2020-10-31] MEDS ORDERED: HYDROmorphone 2 MG/1 ML VIAL IV PRN (04:16)
[2020-10-31 23:01] VITALS: BP 100/52
== END 2020-10-31 23:37 | disposition hospice, home (50) ==
LOC: EDUNIT# → EDBD → N.ED 00:18 → N.EDINP 04:06 → INTOOBSV 04:06 → N.EDINP 23:25
PROVIDERS: ADMIT Internal Medicine; ATTEND Internal Medicine